=== PATIENT | female | born 1995 | race Caucasian/White ===

== ENCOUNTER 2017-06-29 13:26 | Emergency (ER) | payer OTHER, SELFPAY ==
[~2017-06-29] VITALS: Ht 157.5 cm; Wt 54.5 kg
[2017-06-29] MEDS ORDERED: NS 1,000 ML IV SCH (14:37)
[2017-06-29] MEDS ORDERED: ASPIRIN 81 MG CHEW TABLET PO ONE (14:45)
[2017-06-29] MEDS ORDERED: GI COCKTAIL 50ML BTL(HYOSCYAMINE/MAALOX/LIDOCAINE VISCOUS)(1:3:1) PO ONE (14:45)
[2017-06-29 14:56] LABS: BASO # 0.1 10^3/uL (0.0-0.2); BASO % 0.8 % (0.0-1.0); EOS # 0.1 10^3/uL (0.0-0.50); EOS % 1.1 % (0.0-3.0); IMMATURE GRANULOCYTE % 0.5 % (0-0); LYMPH # 2.4 10^3/uL (1.5-6.5); LYMPH % 27.5 % (24.0-44.0); MEAN CORPUSCULAR HEMOGLOBIN 30.6 pg (27.0-33.0); MEAN CORPUSCULAR HGB CONC 33.6 g/dl (32.0-36.5); MEAN CORPUSCULAR VOLUME 91.1 fl (80.0-96.0); MONO # 0.8 10^3/uL (0.0-0.8); MONO % 8.9 % (0.0-5.0); NEUTROPHILS # 5.4 10^3/uL (1.8-7.7); NEUTROPHILS % 61.2 % (36.0-66.0); PLATELET COUNT, AUTOMATED 261 10^3/uL (150-450); RED CELL DISTRIBUTION WIDTH 12.2 % (11.5-14.5); WHITE BLOOD COUNT 8.9 10^3/uL (4.0-10.0)
[2017-06-29 15:10] LABS: INR 1.11
[2017-06-29 15:18] LABS: CONTROL LINE HCG INT CTR LINE PRESENT
[2017-06-29 15:30] LABS: ANION GAP 7 MEQ/L (8-16); BLOOD UREA NITROGEN 10 MG/DL (7-18); CALCIUM LEVEL 8.6 MG/DL (8.5-10.1); CARBON DIOXIDE LEVEL 26 MEQ/L (21-32); CHLORIDE LEVEL 107 MEQ/L (98-107); CREATININE FOR GFR 0.66 MG/DL (0.55-1.02); GLOMERULAR FILTRATION RATE > 60.0 (>60); GLUCOSE, FASTING 90 MG/DL (70-105); POTASSIUM SERUM 3.7 MEQ/L (3.5-5.1); SODIUM LEVEL 140 MEQ/L (136-145)
[2017-06-29] MEDS ORDERED: PRIL20CA9 PO (16:04)
--- NOTE | 2017-06-29 16:04 | REP ---
Chest x-ray: Two views. History: Chest pain . Comparison study: No comparison . Findings: The lungs are well inflated and free of infiltrate. The pleural angles are sharp. The heart size is normal. Pulmonary vasculature is not increased. No significant bony abnormality is seen. EKG monitoring electrodes overlie the chest. Impression: Negative chest x-ray. Signed by True Hammond MD 06/29/2017 03:55 P
[2017-06-29 17:20] VITALS: BP 124/68
--- NOTE | 2017-06-29 18:24 | ECGEPIP ---
Stationary ECG Study [facility] - ED Test Date: 2017-06-29 Pat Name: ALEJO GONG Department: Room: - Gender: F Rn Corrections: norm : 1995 Requested By: NAMITA MONTEZ Order Number: [id number] Reading MD: Radha Griffiths Measurements Intervals [place] Rate: 75 P: -8 UT: 104 QRS: 97 QRSD: 104 T: 37 QT: 395 QTc: 444 Interpretive Statements SINUS RHYTHM WITH SINUS ARRHYTHMIA WITH SHORT UT INTERVAL BORDERLINE RIGHT AXIS DEVIATION INCOMPLETE RIGHT BUNDLE BRANCH BLOCK NO OLD ECG CHANGES Electronically Signed On 06-29-2017 18:24:24 EDT by Radha Griffiths
== END 2017-06-29 17:22 | disposition home or self-care (01) ==
LOC: M ED 13:26
DX: K21.0 Gastro-esophageal reflux disease with esophagitis (principal)

== ENCOUNTER → 2018-01-20 | Outpatient (REF) | payer OTHER ==
[2018-01-20 23:57] LABS: CHLAMYDIA DNA AMPLIFICATION NEGATIVE (NEGATIVE); GC DNA AMPLIFICATION NEGATIVE (NEGATIVE)
== END ==
LOC: M SFHCLERA 17:38
DX: R10.30 Lower abdominal pain, unspecified (principal); N89.8 Other specified noninflammatory disorders of vagina
CPT/HCPCS: 87086

== ENCOUNTER 2018-07-21 17:25 | Emergency (ER) | payer OTHER ==
[2018-07-21 18:06] LABS: APPEARANCE, URINE CLEAR (CLEAR); BACTERIA, URINE AUTO NEGATIVE (NEGATIVE); BILIRUBIN, URINE AUTO NEGATIVE (NEGATIVE); BLOOD, URINE BLOOD NEGATIVE (NEGATIVE); COLOR, URINE STRAW (YELLOW); GLUCOSE, URINE (UA) AUTO NEGATIVE (NEGATIVE); KETONE, URINE AUTO NEGATIVE (NEGATIVE); LEUKOCYTE ESTERASE, URINE AUTO NEGATIVE (NEGATIVE); NITRITE, URINE AUTO NEGATIVE (NEGATIVE); PROTEIN, URINE AUTO NEGATIVE (NEGATIVE); RBC, URINE AUTO 1 /HPF (0-3); SPECIFIC GRAVITY URINE AUTO 1.004 (1.002-1.035); SQUAMOUS EPITHELIAL CELL UR AU 2 /HPF (0-6); UROBILINOGEN, URINE AUTO 0.2 mg/dL (0.0-2.0); WBC, URINE AUTO 0 /HPF (0-3)
[2018-07-21] MEDS: NS 1,000 ML IV ×2 (18:15)
[2018-07-21 18:30] LABS: BASO # 0.1 10^3/uL (0.0-0.2); BASO % 0.8 % (0.0-1.0); EOS # 0.2 10^3/uL (0.0-0.50); HEMOGLOBIN 13.3 g/dl (12.0-15.5); IMMATURE GRANULOCYTE % 0.3 % (0-3.0); LYMPH # 2.3 10^3/uL (1.5-6.5); LYMPH % 29.6 % (24.0-44.0); MEAN CORPUSCULAR HEMOGLOBIN 30.9 pg (27.0-33.0); MEAN CORPUSCULAR HGB CONC 33.3 g/dl (32.0-36.5); MEAN CORPUSCULAR VOLUME 92.8 fl (80.0-96.0); MONO # 0.7 10^3/uL (0.0-0.8); MONO % 9.1 % (0.0-5.0); NEUTROPHILS # 4.5 10^3/uL (1.8-7.7); NEUTROPHILS % 58.2 % (36.0-66.0); PLATELET COUNT, AUTOMATED 226 10^3/uL (150-450); RED BLOOD COUNT 4.31 10^6/uL (4.00-5.40); RED CELL DISTRIBUTION WIDTH 12.2 % (11.5-14.5); WHITE BLOOD COUNT 7.7 10^3/uL (4.0-10.0)
[2018-07-21 19:11] LABS: ANION GAP 7 MEQ/L (8-16); BLOOD UREA NITROGEN 10 MG/DL (7-18); CALCIUM LEVEL 8.8 MG/DL (8.5-10.1); CARBON DIOXIDE LEVEL 27 MEQ/L (21-32); CHLORIDE LEVEL 105 MEQ/L (98-107); CREATININE FOR GFR 0.59 MG/DL (0.55-1.30); GLOMERULAR FILTRATION RATE > 60.0 (>60); GLUCOSE, FASTING 95 MG/DL (70-100); HCG, SERUM QUANTITATIVE 80935 MIU/ML; POTASSIUM SERUM 3.7 MEQ/L (3.5-5.1); SODIUM LEVEL 139 MEQ/L (136-145)
== END 2018-07-21 20:09 | disposition home or self-care (01) ==
LOC: M ED 17:25
DX: O26.891 Other specified pregnancy related conditions, first trimester (principal); R10.2 Pelvic and perineal pain; M54.5 Low back pain; Z3A.01 Less than 8 weeks gestation of pregnancy
CPT/HCPCS: 76801

== ENCOUNTER 2019-02-20 17:44 | Outpatient (CLI) | payer OTHER, SELFPAY ==
[~2019-02-20] VITALS: Ht 157.5 cm; Wt 67.3 kg
[~2019-02-20 17:44] MED LIST: PRENTAB45 PO; PRIL20CA9 PO; REGL10TA6 PO
[2019-02-20 18:20] VITALS: BP 126/82
[2019-02-20 18:24] VITALS: BP 128/82
[2019-02-20 18:40] VITALS: BP 124/68
== END 2019-02-20 18:50 | disposition home or self-care (01) ==
LOC: M LDO 17:44
PROVIDERS: ATTEND Obstetrics & Gynecology
DX: O26.893 Other specified pregnancy related conditions, third trimester (principal); R03.0 Elevated blood-pressure reading, without diagnosis of hypertension; Z3A.37 37 weeks gestation of pregnancy
CPT/HCPCS: 59025; G0378; G0463

== ENCOUNTER 2019-03-12 07:07 | Outpatient (CLI) | payer OTHER, SELFPAY ==
[~2019-03-12] VITALS: Ht 157.5 cm; Wt 69.3 kg
[2019-03-12 07:38] VITALS: BP 129/83
== END 2019-03-12 08:31 | disposition home or self-care (01) ==
LOC: M LDO 07:07
PROVIDERS: ATTEND Advanced Practice Midwife
DX: O26.853 Spotting complicating pregnancy, third trimester (principal); O47.1 False labor at or after 37 completed weeks of gestation; Z3A.40 40 weeks gestation of pregnancy
CPT/HCPCS: 59025; G0378; G0463

== ENCOUNTER 2019-03-12 17:04 | Inpatient (IN) | payer OTHER, SELFPAY ==
[2019-03-12] VITALS (28 sets, daily range): BP systolic 102–144; BP diastolic 50–91
[~2019-03-12] VITALS: Ht 157.5 cm; Wt 75.0 kg
[2019-03-12] MEDS ORDERED: LACTATED RINGER'S 1000 ML IV STA (17:21)
[2019-03-12 18:07] LABS: HEMATOCRIT 39.6 % (36.0-47.0); HEMOGLOBIN 13.7 g/dl (12.0-15.5); MEAN CORPUSCULAR HEMOGLOBIN 31.4 pg (27.0-33.0); MEAN CORPUSCULAR HGB CONC 34.6 g/dl (32.0-36.5); MEAN CORPUSCULAR VOLUME 90.8 fl (80.0-96.0); PLATELET COUNT, AUTOMATED 184 10^3/uL (150-450); RED BLOOD COUNT 4.36 10^6/uL (4.00-5.40); WHITE BLOOD COUNT 10.3 10^3/uL (4.0-10.0)
[2019-03-12 18:22] LABS: ALT/SGPT 20 U/L (12-78); BILIRUBIN,TOTAL 0.3 MG/DL (0.2-1.0); CREATININE FOR GFR 0.72 MG/DL (0.55-1.30); GLOMERULAR FILTRATION RATE > 60.0 (>60); LDH LACTATE DEHYDROGENASE 185 U/L (84-246); URIC ACID 4.4 MG/DL (2.6-6.0)
[2019-03-12] MEDS: LR 1,000 ML IV SCH (18:31)
[2019-03-12] MEDS ORDERED: FENTANYL 2MCG/ML ROPIVACAINE 0.2% IN 0.9% NACL 100ML IVBAG As Ordered ONE (19:37)
[2019-03-12] MEDS ORDERED: ONDANSETRON 4MG/2ML VIAL (J2405) IV PRN (20:45)
[2019-03-12] MEDS ORDERED: REFRIGERATOR IV KEYS XX PRN (20:45)
[2019-03-12] MEDS ORDERED: EPIDURAL/PCA KEYS XX PRN (20:45)
[2019-03-12] MEDS ORDERED: FENTANYL/ROPIVACAINE/NACL BAG 100 ML EPIDURAL SCH (20:45)
[2019-03-12] MEDS ORDERED: EPIDURAL COMMENT XX SCH (20:45)
[2019-03-12] MEDS ORDERED: NALOXONE INJ 0.4 MG/1 ML VIAL (J2310) IV PRN (20:45)
[2019-03-12] MEDS ORDERED: ePHEDrine SULFATE 25 MG/5 ML(5MG/ML) SYRINGE IV PRN (20:45)
[2019-03-12] MEDS ORDERED: OXYTOCIN DRIP 30 UNITS in APPROPRIATE DILUENT 1 EA IV SCH (20:45)
[2019-03-12] MEDS ORDERED: diphenhydrAMINE INJ 50MG/ML VIAL (J1200) IV PRN (20:45)
[2019-03-13] VITALS (27 sets, daily range): BP systolic 104–138; BP diastolic 56–89
[2019-03-13] MEDS: LR 1,000 ML IV SCH (01:21)
[2019-03-13] MEDS ORDERED: ceFAZolin 2 GM/D5W 50 ML IV BAG (J0690 PER 500MG) As Ordered ONE (05:49)
[2019-03-13] MEDS ORDERED: BICITRA 30ML SOLN UDC PO ONE (06:00)
[2019-03-13] MEDS ORDERED: OXYTOCIN INJ 10 UNITS/ML VIAL (J2590) As Ordered ONE (06:30)
[2019-03-13] MEDS ORDERED: LIDOCAINE 2% W/EPIN INJ 20ML **PRES FREE As Ordered ONE (06:30)
[2019-03-13] MEDS ORDERED: ONDANSETRON 4MG/2ML VIAL (J2405) IV PRN ×2 (06:30→07:30)
[2019-03-13] MEDS ORDERED: METOCLOPRAMIDE INJ 10MG/2ML VIAL (J2765) IV PRN ×2 (06:30→07:30)
[2019-03-13] MEDS ORDERED: NALOXONE INJ 0.4 MG/1 ML VIAL (J2310) IV PRN ×2 (06:30)
[2019-03-13] MEDS ORDERED: SODIUM BICARBONATE 8.4% INJ 50MEQ 50 ML VIAL As Ordered ONE (06:30)
[2019-03-13] MEDS ORDERED: diphenhydrAMINE INJ 50MG/ML VIAL (J1200) IV PRN (06:30)
[2019-03-13] MEDS ORDERED: FAMOTIDINE INJ 20MG/2ML VIAL (S0028) As Ordered ONE (06:30)
[2019-03-13] MEDS ORDERED: ONDANSETRON 4MG/2ML VIAL (J2405) As Ordered ONE (06:30)
[2019-03-13] MEDS ORDERED: NALBUPHINE HCL 10 MG/ML AMP (J2300) IV PRN (06:30)
[2019-03-13] MEDS ORDERED: MORPHINE PRES-FREE INJ 10 MG/10 ML VIAL (J2274) As Ordered ONE (06:31)
--- NOTE | 2019-03-13 07:00 | HPE ---
DATE OF ADMISSION: 03/12/2019 Nicolette is a 23-year-old female 1, para 0 with an estimated date of confinement (EDC) of 03/12/2019, estimated gestational age (EGA) 40 weeks gestation, who presented to labor and delivery after being evaluated earlier for early labor. She presented with increased contractions, unable to tolerate the contractions. Upon evaluation she was found to be in early labor. At this point a decision was made to admit the patient. Her records were reviewed. LABS: Blood type is O positive. Rubella immune. Hepatitis negative. HIV negative. GC and chlamydia negative. 1-hour sugar testing was within normal limits. Her Group B Streptococcus (GBS) is negative. PAST MEDICAL HISTORY: Denies. PAST SURGICAL HISTORY: Denies. SOCIAL HISTORY: Denies any alcohol, drug or cigarette smoking. REVIEW OF SYSTEMS: Unremarkable. MEDICATIONS - vitamin ALLERGIES: No known drug allergies. PHYSICAL EXAMINATION HEENT: Grossly within normal limits. ABDOMEN: Soft, nontender, nondistended. EXTREMITIES: No clubbing, cyanosis or edema. VAGINAL EXAM: 3 cm dilated, 80% effaced, fetus at -2 station and vertex position. Tracing reviewed, category 1 tracing, contractions every 3-4 minutes. ASSESSMENT: Intrauterine at 40 weeks gestation in early labor. GBS negative. PLAN: Admit to labor and delivery. Routine labs sent. Pain management discussed. Patient opts for an epidural. Will continue to monitor. Anticipate delivery.
[2019-03-13] MEDS ORDERED: MEASLES,MUMPS,RUBELLA VACCINE INJ (MMR-II) (90707) SC SCH (07:15)
[2019-03-13] MEDS ORDERED: RHOGAM 300 MCG (1500 IU) INJ (J2790) IM SCH (07:15)
[2019-03-13] MEDS ORDERED: LR 1,000 ML IV SCH (07:30)
[2019-03-13] MEDS ORDERED: OXYTOCIN DRIP 30 UNITS in APPROPRIATE DILUENT 1 EA IV SCH (07:30)
[2019-03-13] MEDS ORDERED: KETOROLAC 30 MG/ML VIAL (J1885) IV PRN (07:30)
[2019-03-13] MEDS ORDERED: MEPERIDINE INJ 25 MG/ML VIAL (J2175) IV PRN (07:30)
[2019-03-13] MEDS ORDERED: fentaNYL 100 MCG/2 ML INJECTION (J3010) IV PRN (07:30)
[2019-03-13 08:12] LABS: CORD GAS HCO3 V 22.8 MEQ/L; CORD GAS O2 SAT V 82.8 %; CORD GAS PCO2 V 39.3 mmHg; CORD GAS PH V 7.382 UNITS; CORD GAS PO2 V 40.6 mmHg; CORD GAS SBC V 22.5 MEQ/L
--- NOTE | 2019-03-13 08:40 | IPN ---
DATE: 03/13/2019 This patient requested circumcision of her male . After discussing the risks and benefits of the circumcision, the medical and nonmedical indications, penile block and aftercare, expressed understanding of penile block aftercare and bleeding, signed the consent form. We await clearance by the outbound sales representative. 20-minute discussion regarding aftercare. All questions were answered.
[2019-03-13] MEDS: PRENATAL VITAMINS CHEWABLE TABLET PO SCH (10:51)
[2019-03-13] MEDS: PERCOCET 5MG/325MG TAB PO PRN (11:04)
[2019-03-13] MEDS: IBUPROFEN 800 MG TAB PO SCH ×2 (15:47→23:55)
[2019-03-14 02:08] VITALS: BP 116/57
[2019-03-14 06:18] VITALS: BP 104/61
[2019-03-14 08:10] LABS: HEMATOCRIT 27.1 % (36.0-47.0); MEAN CORPUSCULAR HEMOGLOBIN 31.7 pg (27.0-33.0); MEAN CORPUSCULAR HGB CONC 33.2 g/dl (32.0-36.5); MEAN CORPUSCULAR VOLUME 95.4 fl (80.0-96.0); PLATELET COUNT, AUTOMATED 128 10^3/uL (150-450); RED BLOOD COUNT 2.84 10^6/uL (4.00-5.40)
[2019-03-14] MEDS: IBUPROFEN 800 MG TAB PO SCH ×3 (08:17→23:30)
[2019-03-14] MEDS: PRENATAL VITAMINS CHEWABLE TABLET PO SCH (08:17)
[2019-03-14 10:00] VITALS: BP 121/76
--- NOTE | 2019-03-14 13:06 | RO ---
DATE OF PROCEDURE: 03/13/2019 Nicolette is a 23-year-old female who was admitted at 40 weeks gestation in labor. She progressed to approximately 9 cm and had a face presentation with an arrest of dilatation. At this point, the patient was counseled extensively. She had an arrest of dilatation for over 3 hours. The decision was made to proceed with a primary section. PREOPERATIVE DIAGNOSES: 1. Term . 2. Arrest of dilatation. 3. Face presentation. POSTOPERATIVE DIAGNOSES: 1. Term . 2. Arrest of dilatation. 3. Face presentation. PROCEDURE: Primary low transverse section via Pfannenstiel incision. SURGEON; Tylor Wharton DO SUPERVISOR WET END: ANESTHESIA: Epidural. COMPLICATIONS: None. ESTIMATED BLOOD LOSS: 500 mL. FINDINGS: Live male infant in occiput transverse position. scores 9 and 10. weight 7 pounds 5 ounces. Normal appearing tubes and ovaries. DESCRIPTION OF PROCEDURE: After obtaining informed consent, the patient was taken to the operating room where epidural anesthetic was found to be adequate. She was then draped and prepped in the usual sterile fashion in the supine position. At this point, a Pfannenstiel incision was made. This was carried down to the fascia. Fascia was incised in midline fashion and carried through laterally. Superior aspect of the fascia was then grasped with two Elmer clamps, tented off and dissected off the rectus muscles sharply. The inferior aspect was dissected off in similar fashion. Rectus muscles in midline fashion. Peritoneum identified. Peritoneal cavity entered bluntly. Superior and inferior dissection of the peritoneum was then done with good visualization of the bladder. At this point, a Mobius skin retractor was placed. A low transverse uterine incision was made. was delivered in atraumatic fashion. Nose and mouth bulb suctioned. Cord doubly clamped and cut, and the infant was handed over to awaiting warmer. Cord blood and cord gas were sent. Placenta removed manually. Uterus cleared of all clot and debris, and the uterine incision was then repaired in two separate layers of #0 Vicryl sutures. Pelvis copiously irrigated with normal saline and suctioned out. Attention was turned to the peritoneum which was closed in a running fashion using #2-0 Vicryl. All superficial bleeders coagulated. Fascia closed in two separate segments of #0 Vicryl suture, and the skin was reapproximated in a subcuticular fashion using #3-0 Vicryl on a [facility]. Steri-Strips placed. The patient tolerated procedure well. She was then transferred to recovery room in stable condition.
[2019-03-14 14:00] VITALS: BP 118/68
[2019-03-14] MEDS: PERCOCET 5MG/325MG TAB PO PRN ×2 (14:41→23:31)
--- NOTE | 2019-03-14 14:58 | IPN ---
DATE: 03/14/2019 A 23-year-old one, admitted at 40 weeks of gestation with contractions, had a primary section for arrest of dilatation, live male weighing 7 pounds 5 ounces, scores of 9 and 10 at one and five minutes respectfully. Venous pH 7.3, base excess -2.0. On examination today, her blood pressure is 104/61, respirations 16, pulse 72, temperature 97.8. We discussed phlebitis, cystitis, mastitis, endometritis and cellulitis, diet, exercise, pain management, perineal, breast and wound care, The rest of the examination unremarkable. Normocephalic, atraumatic. Neck: Full range of motion. Pupils equal and reactive to light. Distal pulses symmetric. No evidence of deep venous thrombosis (DVT), pulmonary embolism (PE), or superficial phlebitis. Chest is clear bilaterally bases. No wheezes or rhonchi. Abdomen: Soft, uterus two below. Lochia is moderate. Incision is clean and dry. Four quadrant bowel sounds are noted. Perineum is intact and she has moderate lochia. No rashes, lesions or pruritus. No arthralgia, myalgia. No complaint of joint pain. No complaint of cough, wheeze, shortness of breath or dyspnea on exertion. No nausea, vomiting, diarrhea or constipation. In summary, we have a term gestation, delivered a live male infant. Plans for discharge tomorrow. Medication will be dispensed and narcotics are at [facility] to be dispensed on Friday morning.
[2019-03-14 18:00] VITALS: BP 119/63
[2019-03-14] MEDS: DOCUSATE SODIUM 100 MG CAP PO SCH (21:07)
[2019-03-14 22:00] VITALS: BP 129/76
[2019-03-15 02:42] VITALS: BP 132/65
[2019-03-15 06:20] VITALS: BP 81/43
[2019-03-15] MEDS ORDERED: PRENCHW PO (06:34)
[2019-03-15] MEDS ORDERED: IBUP80TA PO (06:34)
[2019-03-15] MEDS ORDERED: PERCOCET PO (06:34)
[2019-03-15] MEDS ORDERED: COLA100C5 PO (06:34)
[2019-03-15 07:34] VITALS: BP 125/71
[2019-03-15] MEDS: PRENATAL VITAMINS CHEWABLE TABLET PO SCH (09:40)
[2019-03-15] MEDS: IBUPROFEN 800 MG TAB PO SCH ×2 (09:40→16:52)
[2019-03-15] MEDS: DOCUSATE SODIUM 100 MG CAP PO SCH (09:40)
--- NOTE | 2019-03-15 11:57 | DSES ---
DATE OF ADMISSION: 03/12/2019 DATE OF DISCHARGE: 03/15/2019 This lady is 23-year-old 1 now para 1 admitted at 40 weeks with contractions, had a primary section for arrest of dilatation, male infant 7 pounds 5 ounces, scores of nine and ten at 1 and 5 minutes respectfully. Venous pH 7.38, base excess -2.0. On her second day we discussed phlebitis, cystitis, mastitis, endometritis, cellulitis, diet, exercise pain management, perineal, breast and wound care. On discharge her blood pressure was 81/43, respirations are 16, pulse 71, temperature is 98.2. Her admitting hemoglobin was 13.7, hematocrit 39.6 and platelets 184. Discharge hemoglobin 9.0, hematocrit 27.1 and platelets were 128. The rest examination unremarkable. Normocephalic, atraumatic. Neck full range of motion. Pupils equal and reactive to light. Distal pulses symmetric. No evidence of deep vein thrombosis (DVT), pulmonary embolism (PE), or superficial phlebitis. Chest is clear bilaterally to the bases. No wheeze or rhonchi. No CVA tenderness. Abdomen is soft. Uterus 2 below. Lochia is moderate. Incision is clean and dry. Four quadrant bowel sounds are noted. No rashes, lesions or pruritus. No arthralgias, myalgias. No complaint of joint pain. No cough, wheeze, shortness of breath or dyspnea on exertion. No nausea, vomiting, diarrhea or constipation. No urgency or frequency. In summary, we have a term gestation delivered by primary section live male . Plans are two week incision check at [facility], six week check at [place]. Medications were dispensed to the patient and the narcotics are at [facility] for the to roll picker after 0800 hours today. All questions were answered. edited: 03/16/2019 0720 shahriar PULLIAM
[2019-03-15 18:00] VITALS: BP 117/69
== END 2019-03-15 20:44 | disposition home or self-care (01) | DRG 773 ==
LOC: M LDO 17:04 → M LDI 17:21 → M OBS 03-13 09:01
PROVIDERS: ADMIT Obstetrics & Gynecology; ATTEND Obstetrics & Gynecology
PROC: 10907ZC Drainage of Amniotic Fluid, Therapeutic from Products of Conception, Via Natural or Artificial Opening (ICD-10-PCS; 2019-03-12)
PROC: 10D00Z1 Extraction of Products of Conception, Low, Open Approach (ICD-10-PCS; principal; 2019-03-13 06:00)
DX: O64.2XX0 Obstructed labor due to face presentation, not applicable or unspecified (principal); O62.0 Primary inadequate contractions; Z3A.40 40 weeks gestation of pregnancy; Z37.0 Single live birth; O77.0 Labor and delivery complicated by meconium in amniotic fluid